=== PATIENT | female | born 1975 | race Caucasian/White ===

== ENCOUNTER 2019-02-17 17:30 | Emergency (ER) | payer MEDICAID ==
[~2019-02-17] VITALS: Ht 160 cm; Wt 68.5 kg
[2019-02-17 17:37] VITALS: Ht 160 cm; Wt 68.5 kg
[2019-02-17 18:31] LABS: BASOPHIL % 0.4 % (0-2); PLATELET COUNT 183 x10^3mcL (130-400); RED CELL DISTRIBUTION WIDTH 13.6 % (11.5-14.5)
[2019-02-17 18:43] LABS: CALCIUM 8.6 mg/dL (8.5-10.1); CARBON DIOXIDE 22.7 mmol/L (21-32); CHLORIDE SERUM 102 mmol/L (98-107); CREATININE SERUM 0.7 mg/dL (0.6-1.0); GFR1 > 60 mL/min; GLUCOSE SERUM 92 mg/dL (74-106); POTASSIUM SERUM 3.6 mmol/L (3.5-5.1); SODIUM SERUM 136 mmol/L (136-145)
[2019-02-17 18:50] LABS: ALBUMIN 3.7 g/dL (3.4-5.0); ALKALINE PHOSPHATASE 82 U/L (46-116); ALT/SGPT 22 U/L (14-59); AST/SGOT 16 U/L (15-37); BILIRUBIN TOTAL 0.3 mg/dL (0.20-1.00); TOTAL PROTEIN, SERUM 7.3 g/dL (6.4-8.2)
[2019-02-17 20:25] VITALS: BP 126/82
== END 2019-02-17 20:25 | disposition home or self-care (01) ==
LOC: ED 17:30
PROVIDERS: Emergency Medicine
DX: H00.015 Hordeolum externum left lower eyelid (principal); Z98.51 Tubal ligation status; M06.9 Rheumatoid arthritis, unspecified; Z88.0 Allergy status to penicillin
CPT/HCPCS: 36415

== ENCOUNTER 2019-02-18 19:34 | Emergency (ER) | payer MEDICAID ==
[~2019-02-18] VITALS: Ht 160 cm; Wt 68.7 kg
[2019-02-18 20:07] VITALS: Ht 160 cm; Wt 68.7 kg
[2019-02-18 21:51] VITALS: BP 112/68
== END 2019-02-18 20:30 | disposition home or self-care (01) ==
LOC: ED 19:34
DX: H00.016 Hordeolum externum left eye, unspecified eyelid (principal); M06.9 Rheumatoid arthritis, unspecified; H10.89 Other conjunctivitis; Z98.51 Tubal ligation status; Z88.0 Allergy status to penicillin

== ENCOUNTER 2019-03-26 18:06 | Emergency (ER) | payer MEDICAID ==
[~2019-03-26] VITALS: Ht 160 cm; Wt 68.7 kg
[2019-03-26 18:19] VITALS: Ht 160 cm; Wt 68.7 kg
[2019-03-26 20:14] LABS: BASOPHIL % 0.2 % (0-2); PLATELET COUNT 212 x10^3mcL (130-400); RED CELL DISTRIBUTION WIDTH 13.2 % (11.5-14.5)
[2019-03-26 20:38] LABS: CALCIUM 9.2 mg/dL (8.5-10.1); CHLORIDE SERUM 104 mmol/L (98-107); CREATININE SERUM 0.7 mg/dL (0.6-1.0); GFR1 > 60 mL/min; GLUCOSE SERUM 100 mg/dL (74-106); POTASSIUM SERUM 3.7 mmol/L (3.5-5.1); SODIUM SERUM 139 mmol/L (136-145)
[2019-03-27 00:17] VITALS: BP 108/68
== END 2019-03-27 00:17 | disposition home or self-care (01) ==
LOC: ED 18:06
PROVIDERS: Emergency Medicine
DX: N30.90 Cystitis, unspecified without hematuria (principal); R10.30 Lower abdominal pain, unspecified; Z88.0 Allergy status to penicillin
CPT/HCPCS: 36415; J1885; J3010